=== PATIENT | male | born 1980 | race Asian ===

== ENCOUNTER 2019-07-17 17:45 | Emergency (ER) | payer MEDICAID, OTHER ==
[~2019-07-17] VITALS: Ht 165.1 cm; Wt 113.0 kg
[2019-07-17] MEDS ORDERED: metoprolol tartrate 25mg tablet PO ONE (18:05)
--- NOTE | 2019-07-17 18:11 | NUR ---
PATIENT RESTING COMFORTABLY, GAVE LOPRESSOR FOR ELEVATED PT
[2019-07-17 18:25] LABS: ALANINE AMINOTRANSFERASE 91 U/L (12-78); ALBUMIN 4.5 G/DL (3.4-5.0); ALBUMIN/GLOBULIN RATIO 1.1 (1.1-1.5); ALKALINE PHOSPHATASE 82 IU/L (46-116); ANION GAP 9 (8-16); ASPARTATE AMINO TRANSFERASE 38 U/L (10-37); BILIRUBIN,TOTAL 0.7 MG/DL (0.1-1.0); BLOOD UREA NITROGEN 13 MG/DL (7-18); BUN/CREATININE RATIO 12.1 (5.4-32.0); CHLORIDE 104 MMOL/L (99-107); CREATININE 1.07 MG/DL (0.60-1.10); GLUCOSE 105 MG/DL (70-104); POTASSIUM 3.2 MMOL/L (3.5-5.1); SODIUM 139 MMOL/L (135-145); TOTAL CARBON DIOXIDE 25.9 MMOL/L (24-32); TOTAL PROTEIN 8.5 G/DL (6.4-8.2); eGFR 78 ML/MIN
[2019-07-17 18:27] LABS: BASOPHILS # (AUTO) 0.1 X10'3 (0-0.2); BASOPHILS % (AUTO) 0.6 % (0-1); EOSINOPHILS # (AUTO) 0.1 X10'3 (0-0.9); EOSINOPHILS % (AUTO) 1.4 % (0-6); HEMATOCRIT 51.4 % (42.0-52.0); HEMOGLOBIN 17.6 g/dl (14.0-17.9); LYMPHOCYTES # (AUTO) 3.3 X10'3 (1.1-4.8); MEAN CORPUSCULAR HGB CONC 34.3 g/dL (33.0-36.5); MEAN CORPUSCULAR VOLUME 90.5 FL (78-98); MEAN PLATELET VOLUME 8.7 FL (7.4-10.4); MONOCYTES # (AUTO) 0.4 X10'3 (0-0.9); MONOCYTES % (AUTO) 4.9 % (2-12); NEUTROPHILS % (AUTO) 56.1 % (42-75); PLATELET COUNT 246 X10'3 (140-440); RED BLOOD COUNT 5.68 X10'6 (4.70-6.10); RED CELL DISTRIBUTION WIDTH 13.6 % (11.5-14.5); WHITE BLOOD COUNT 8.9 X10'3 (4.5-11.0)
[2019-07-17] MEDS ORDERED: potassium Cl 20 mEq SR tablet PO ONE (18:35)
[2019-07-17] MEDS ORDERED: AMLO10TA48 PO (18:53)
[2019-07-17 18:56] VITALS: BP 146/111
== END 2019-07-17 18:59 | disposition home or self-care (01) ==
LOC: ER 17:46
DX: I10 Essential (primary) hypertension (principal); Z79.899 Other long term (current) drug therapy
CPT/HCPCS: 71045; 80053; 84484; 85025; 93005; 99285

== ENCOUNTER 2020-06-28 09:15 | Emergency (ER) | payer MEDICAID, OTHER ==
[~2020-06-28] VITALS: Ht 165.1 cm; Wt 112.4 kg
[~2020-06-28 09:15] MED LIST: AMLO10TA48 PO
[2020-06-28 10:33] LABS: BASOPHILS % (AUTO) 0.3 % (0-1); EOSINOPHILS % (AUTO) 0.2 % (0-6); HEMATOCRIT 50.4 % (42.0-52.0); HEMOGLOBIN 17.2 g/dl (14.0-17.9); LYMPHOCYTES # (AUTO) 0.5 X10'3 (1.1-4.8); LYMPHOCYTES % (AUTO) 5.2 % (21-51); MEAN CORPUSCULAR HEMOGLOBIN 30.6 PG (27.0-31.0); MEAN CORPUSCULAR HGB CONC 34.1 g/dL (33.0-36.5); MEAN CORPUSCULAR VOLUME 89.9 FL (78-98); MEAN PLATELET VOLUME 8.4 FL (7.4-10.4); MONOCYTES # (AUTO) 0.3 X10'3 (0-0.9); MONOCYTES % (AUTO) 3.3 % (2-12); NEUTROPHILS # (AUTO) 9.4 X10'3 (1.8-7.7); PLATELET COUNT 212 X10'3 (140-440); RED CELL DISTRIBUTION WIDTH 13.8 % (11.5-14.5); WHITE BLOOD COUNT 10.3 X10'3 (4.5-11.0)
--- NOTE | 2020-06-28 10:38 | NUR ---
patient bp left arm 130/87 patietn bp right arm 133/87
[2020-06-28] MEDS ORDERED: normal saline 1000ML IV soln IVB ONE (10:40)
[2020-06-28] MEDS ORDERED: ondansetron/PF 4mg/2ml inj IV ONE (10:40)
[2020-06-28] MEDS ORDERED: morphine 4 MG/ML inj SYRINge IV PRN (10:40)
[2020-06-28 10:54] LABS: ALANINE AMINOTRANSFERASE 95 U/L (12-78); ALBUMIN 4.2 G/DL (3.4-5.0); ALBUMIN/GLOBULIN RATIO 1.1 (1.1-1.5); ALKALINE PHOSPHATASE 86 IU/L (46-116); ANION GAP 13 (8-16); ASPARTATE AMINO TRANSFERASE 55 U/L (10-37); BILIRUBIN,TOTAL 0.8 MG/DL (0.1-1.0); BLOOD UREA NITROGEN 11 MG/DL (7-18); BUN/CREATININE RATIO 10.5 (5.4-32.0); CHLORIDE 101 MMOL/L (99-107); CREATININE 1.05 MG/DL (0.60-1.10); GLUCOSE 110 MG/DL (70-104); POTASSIUM 3.8 MMOL/L (3.5-5.1); SODIUM 136 MMOL/L (135-145); TOTAL CARBON DIOXIDE 22.3 MMOL/L (24-32); eGFR 79 ML/MIN
[2020-06-28 11:04] LABS: CREATINE KINASE 686 U/L (39-308)
[2020-06-28] MEDS ORDERED: iohexol 350MG/ML 100ml bottle IV ONE (11:05)
[2020-06-28] MEDS ORDERED: dexamethasone sod phosphate 10mg/ml inj IV STA (12:21)
[2020-06-28] MEDS ORDERED: nitroGLYCERIN 0.4mg SUBLingual tab SL PRN (12:25)
[2020-06-28] MEDS ORDERED: levetiracetam inj 1,000 MG in normal saline 100ml IV soln 90 ML IV ONE (13:30)
[2020-06-28] MEDS ORDERED: levetiracetam-NS 1000mg/100ml 100 ML IV ONE (13:43)
[2020-06-28] MEDS ORDERED: FAMO20TA47 PO (13:44)
[2020-06-28] MEDS ORDERED: LISI10TA27 PO (13:44)
[2020-06-28] MEDS ORDERED: AMLO10TA PO (13:44)
[2020-06-28] MEDS ORDERED: ESOM20CA PO (13:44)
--- NOTE | 2020-06-28 18:58 | NUR ---
at pt bedside. no concerns or requests at this time. they are aware of pending transfer
--- NOTE | 2020-06-28 19:58 | NUR ---
CALLED [facility] NO BED OF NOW
--- NOTE | 2020-06-28 22:49 | NUR ---
pt sitting at bedside. no requests at this time. updated that they may be here until morning as [facility] has no beds available. they verbalized understanding of this plan.
--- NOTE | 2020-06-28 23:50 | NUR ---
pt appears to be resting peacefully. no s/s acute distress at this time. at bedside.
[2020-06-29] MEDS: dexamethasone sod phosphate 10mg/ml inj IV SCH ×2 (02:23→14:10)
[2020-06-29] MEDS: levetiracetam-NS 1000mg/100ml 100 ML IV SCH ×2 (02:24→14:10)
--- NOTE | 2020-06-29 02:51 | NUR ---
pt and report no needs at this time. pt denies any pain, sob or cp. states they will let staff know of any needs.
--- NOTE | 2020-06-29 02:56 | NUR ---
CALLED [facility] STILL NO BED
--- NOTE | 2020-06-29 05:43 | NUR ---
STILL AWAITING BED AT [facility]
--- NOTE | 2020-06-29 06:41 | NUR ---
patient asleep at this time,we will monitor.
--- NOTE | 2020-06-29 07:20 | NUR ---
patient up to the bathroom, at bedside.Still awaiting bed availability at [facility].
--- NOTE | 2020-06-29 08:46 | NUR ---
per Dr. Sanz,patient can eat.Still awaiting for a bed from [facility].
--- NOTE | 2020-06-29 11:57 | NUR ---
Patient in the room,spouse at bedside.Still awaiting for bed availability at [facility].
[2020-06-29 16:01] VITALS: BP 124/68
--- NOTE | 2020-06-29 16:12 | NUR ---
Nghiaar called to [facility],also called spouse made aware that patient has a bed and is being transferred in 15 minutes.
== END 2020-06-29 17:09 | disposition short-term general hospital (02) ==
LOC: ER 09:16
DX: G43.909 Migraine, unspecified, not intractable, without status migrainosus (principal); Z20.822 Contact with and (suspected) exposure to COVID-19; R41.82 Altered mental status, unspecified; K76.9 Liver disease, unspecified; G93.9 Disorder of brain, unspecified; R07.89 Other chest pain; I10 Essential (primary) hypertension; Z79.899 Other long term (current) drug therapy
CPT/HCPCS: 36415; 71045; 71275; 74174; 80053; 82550; 83605; 83880; 84484; 85025; 87040; 87635; 93005; 96361; 96365; 96366; 96375; 96376; 99291; 99292; C9803; J1100; J1953; J2270; J2405; J7030; Q9967; 96368; 99285